=== PATIENT | female | born 2000 | race Caucasian/White ===

== ENCOUNTER 2024-03-06 21:37 | Emergency (ER) | payer OTHER, SELFPAY ==
--- NOTE | 2024-03-06 | ECG_ITS ---
Test Reason : CHEST PAIN Blood Pressure : / mmHG Vent. Rate : 075 BPM Atrial Rate : 075 BPM P-R Int : 134 ms QRS Dur : 076 ms QT Int : 396 ms P-R-T Axes : 049 050 025 degrees QTc Int : 442 ms Normal sinus rhythm with sinus arrhythmia Normal ECG No previous ECGs available Referred By: Generic ED Physician Electronically Signed By:RAUL PRECIADO MD
--- NOTE | ~2024-03-06 | XR_ITS ---
EXAMINATION: XR CHEST CLINICAL INFORMATION: dyspnea COMPARISON: None available. TECHNIQUE: Frontal view of the chest was obtained. FINDINGS: No significant abnormality is noted involving the heart, lungs, mediastinum, bony thorax or soft tissues. XR/XR chest 1V IMPRESSION: Unremarkable examination. Electronically signed by: Guevara Katz MD 03/07/2024 12:02 AM [facility]
[2024-03-06 21:41] VITALS: BP 127/80; PULSE 77; O2SAT 100
[2024-03-06 21:43] VITALS: BP 132/76; PULSE 104; PULSE 85; RESP 18; TEMP 36.5; O2SAT 99; BMI 29.3
--- NOTE | 2024-03-06 21:58 | ED.GENADULT ---
HPI - General Adult General Chief complaint: Upper Respiratory Symptoms Stated complaint: SOB, COUGH X 2WEEKS Time Seen by Provider: 03/06/24 21:58 History of Present Illness ED Provider: Tami COLEMAN narrative: The patient is a 23-year-old female with no significant past medical history. She is on no medications. She is not on control medication. She says that she has been feeling unwell for about 10 days. She has had body aches, sore throat, and cough. She has also been feeling intermittently wheezy and intermittently short of breath. She says it some point she tried using somebody's albuterol but did not feel that it helped. Today she was at work and had a coughing fit and she felt like she could not catch her breath. An ambulance was called and she was brought to the hospital. She does not know if she has had a fever. She has felt hot and chilled but has not checked her temperature. The patient smokes E cigarettes. She says she used to smoke regular cigarettes but does not do that anymore. Related Data Previous Rx's ?Medication ?Instructions ?Recorded albuterol sulfate 90 mcg/actuation 2 puff inhalation Q4-6H PRN 03/07/24 aerosol inhaler shortness of breath or wheezing #8.5 grams azithromycin 250 mg tablet 250 mg PO DAILY 4 days #4 tabs 03/07/24 Allergies Allergy/AdvReac Type Severity Reaction Status Date / Time No Known Allergies Allergy Verified 03/06/24 21:48 Review of Systems Review of Systems: Yes all other systems are reviewed and are negative PMFSH Social History Social History Smoked in Last 30 Days: No Use of substances other than those prescribed or required for medical reasons: Yes Substance Use Type: Marijuana Advance Directives: No Advance Directives Information Provided: No Physical Exam ED Vital Signs: Vital Signs - 24 hr 03/06/24 21:43 03/06/24 21:43 03/06/24 22:03 Temperature 97.7 F 97.7 F Pulse Rate 85 104 H Respiratory Rate 18 18 Blood Pressure 132/76 132/76 Pulse Oximetry 99 99 95 Oxygen Delivery Method Room Air Room Air Room Air 03/07/24 00:03 03/07/24 00:25 03/07/24 00:43 Temperature 98.1 F 98.1 F Pulse Rate 88 80 80 Respiratory Rate 18 16 16 Blood Pressure 122/61 122/61 Pulse Oximetry 96 96 Oxygen Delivery Method Room Air Room Air BMI result Body Mass Index 29.3 Const Other: The patient is awake and alert. She looks as if she is an ordinarily healthy 23-year-old. She has fairly frequent cough but does not appear in respiratory distress or seem toxic. HENMT Other: Face is symmetrical. Mucous membranes are moist. The posterior pharynx does not appear obviously erythematous. No exudate. Eyes General: appearance normal, both eyes and all related structures Conjunctivae: conjunctivae normal Pupils: Equal, round and reactive pupils present EOM: EOMs intact bilaterally Neck Other: Neck is supple, no adenopathy Resp Effort & Inspection: normal respiratory effort Auscultation: clear to auscultation bilaterally Cardio Rate: regular rate Rhythm: regular rhythm Heart sounds: S1 normal heart sound present and S2 normal heart sound present Skin Other: Skin is pale and dry Neuro Other: The patient is awake and alert with a normal mental status. Cranial nerves are grossly intact. She moves her extremities normally and appropriately. She seems neurologically intact. Cranial nerves: Yes Equal, round and reactive pupils present Extrem Other: No calf swelling or tenderness, no peripheral edema, no asymmetry Medications Administered Discontinued Medications Generic Name Dose Route Start Last Admin Trade Name Freq PRN Reason Stop Dose Admin Albuterol Sulfate 2 puff 03/07/24 00:27 03/07/24 00:29 Albuterol Sulfate 90 Mcg 8 Gm Inhaler INHALE 03/07/24 00:28 2 puff ONCE ONE Administration Albuterol/Ipratropium 3 ml 03/06/24 23:52 03/07/24 00:02 Albuterol/Iprat 2.5/0.5mg 3 Ml Ampul.Neb INHALE 03/06/24 23:53 3 ml ONCE ONE Administration Azithromycin 500 mg 03/07/24 00:25 03/07/24 00:36 Azithromycin 500 Mg Tablet PO 03/07/24 00:26 500 mg ONCE ONE Administration Medical Decision Making Medical Decision Making [facility] Narrative: The patient is a 23-year-old female who says that she does not have a history of asthma. She has had respiratory symptoms for about 2 weeks with a lot of coughing, body aches, and a sense of being chilled. Today she had a coughing fit that made it feel like she could not breathe and so an ambulance was called and she was brought to the hospital. On exam she does not have any yakov wheezing but she does have a frequent cough. She felt considerably better after a DuoNeb updraft. It is not a possible she might have cough asthma. She will be treated with a course of azithromycin. She was instructed in the use of an albuterol inhaler with a spacer and will be discharged with an albuterol inhaler and spacer. She should follow up with the regular doctor. She should return if worse. Lab Data Labs: Lab Results 03/06/24 Range/Units 22:06 Influenza Type A (PCR) NEGATIVE (Negative) Influenza Type B (PCR) NEGATIVE (Negative) RSV RNA Qual (PCR) NEGATIVE (Negative) SARS-CoV-2 RNA (RT-PCR) NEGATIVE (Negative) S. pyogenes GrpA KWAKU Negative (Negative) Discharge Plan Discharge Clinical Impression: Acute bronchitis Patient Disposition: Home, Self-Care Instructions: How to Use a Metered-Dose Inhaler and a Spacer (ED) Additional Instructions: You seemed to get some relief from albuterol. You may use the prescribed albuterol inhaler 2 puffs every 4-6 hours as needed for coughing or any shortness of breath. Please also take the prescribed antibiotic, azithromycin. Take this once a day. Drink a lot of fluids. You may use ibuprofen and acetaminophen as needed for discomfort. Please plan on following up with your regular doctor's office. Return to the emergency room if you feel significantly worse. Prescriptions: New azithromycin 250 mg tablet 250 mg PO DAILY 4 Days Qty: 4 0RF Rx Instructions: start on day 2 of therapy albuterol sulfate 90 mcg/actuation HFA aerosol inhaler 2 puff inhalation Q4-6H PRN (Reason: shortness of breath or wheezing) Qty: 8.5 0RF Referrals: [facility] [Provider Group] (bronchitis. ?asthma?) Stand Alone Forms: Work/School Release Interventions: ED Discharge Assessment Last Done: 03/07/24 00:43 Discharge Date/Time: 03/07/24 00:44 Print Language: Swedish
[2024-03-06 22:03] VITALS: O2SAT 95
[2024-03-06 22:21] LABS: IDNOW Serial# 08D9AD1C; Strep A Nucleic Acid Negative (Negative)
[2024-03-06 22:57] LABS: Influenza A PCR NEGATIVE (Negative); Influenza B PCR NEGATIVE (Negative); Resp Syncy Virus RNA Qual PCR NEGATIVE (Negative); SARS COV2 PCR INHOUSE NEGATIVE (Negative)
[2024-03-07] MEDS: Albuterol/Iprat 2.5/0.5MG 3 ML AMPUL.NEB INHALE (00:02)
[2024-03-07 00:03] VITALS: PULSE 88; RESP 18; O2SAT 100
[2024-03-07 00:25] VITALS: BP 122/61; PULSE 80; RESP 16; TEMP 36.7; O2SAT 96
[2024-03-07] MEDS: Albuterol Sulfate 90 MCG 8 GM INHALER 2 PUFF INHALE (00:29)
[2024-03-07] MEDS: Azithromycin 500 MG TABLET PO (00:36)
[2024-03-07 00:43] VITALS: BP 122/61; PULSE 80; RESP 16; TEMP 36.7; O2SAT 96
[2024-03-07 09:06] LABS: Adenovirus PCR Not Detected (Not Detect.); Bordetella parapertussis PCR Not Detected (Not Detect.); Bordetella pertussis PCR Not Detected (Not Detect.); Chlamydia pneumoniae PCR Not Detected (Not Detect.); Coronavirus 229E PCR Not Detected (Not Detect.); Coronavirus HKU1 PCR Not Detected (Not Detect.); Coronavirus NL63 PCR Not Detected (Not Detect.); Coronavirus OC43 PCR Not Detected (Not Detect.); Human metapneumovirus PCR Not Detected (Not Detect.); Influenza A PCR Not Detected (Not Detect.); Influenza B PCR Not Detected (Not Detect.); Mycoplasma pneumoniae PCR Not Detected (Not Detect.); Parainfluenza 1 PCR Not Detected (Not Detect.); Parainfluenza 2 PCR Not Detected (Not Detect.); Parainfluenza 3 PCR Not Detected (Not Detect.); Parainfluenza 4 PCR Not Detected (Not Detect.); RSV PCR Not Detected (Not Detect.); Rhino/Enterovirus PCR Not Detected (Not Detect.)
[2024-03-07 09:39] LABS: SARS-CoV-2 PCR Not Detected (Not Detect.)
== END 2024-03-07 00:44 | disposition home or self-care (01) ==
PROVIDERS: Emergency Provider Emergency Medicine
DX: J40 Bronchitis, not specified as acute or chronic (principal); Z03.818 Encounter for observation for suspected exposure to other biological agents ruled out; R05.9 Cough, unspecified
CPT/HCPCS: 0241U; 71045; 87633; 87651; 93005; 94640; 99284; 99285

== ENCOUNTER → 2024-03-06 21:58 | Outpatient (BNV) | payer SELFPAY | PROVIDERS: Emergency Provider Emergency Medicine; Visit Provider Internal Medicine Cardiovascular Disease | DX: R07.9 Chest pain, unspecified (principal) | CPT/HCPCS: 93010 ==

== ENCOUNTER 2024-12-28 08:26 | Outpatient (REF) | payer BC, SELFPAY ==
[2024-12-28 11:54] LABS: Hematocrit 38.3 % (37.0-47.0); Hemoglobin 12.8 g/dl (12.0-16.0); Mean Corpuscular HGB Conc 33.4 g/dl (31.0-35.0); Mean Corpuscular Hemoglobin 31.0 pg (27.0-33.0); Mean Corpuscular Volume 92.7 fL (80.0-98.0); NRBC Abs Auto 0.000 X10*3/uL (0.0-0.012); NRBC Pct Auto 0.0 /100WBC (0.0-0.2); Platelet Count 262 X10*3/uL (160-400); Red Blood Count 4.13 X10*6/uL (4.20-5.50); White Blood Count 6.0 X10*3/uL (4.8-10.8)
[2024-12-28 12:44] LABS: Alanine Aminotransferase 17 U/L (0-31); Albumin Level 4.5 g/dL (3.5-5.0); Alkaline Phosphatase 53 U/L (39-117); Anion Gap 9 (12-20); Aspartate Amino Transferase 22 U/L (5-31); Blood Urea Nitrogen 11 mg/dL (9-16); Calcium 9.0 mg/dL (8.4-10.2); Carbon Dioxide 28 mmol/L (22-29); Chloride 109 mmol/L (96-108); Cholesterol 132 mg/dL (<200); Estimated Glomerular Filt Rate > 60; HDL Cholesterol 49 mg/dL (>40); Potassium 3.4 mmol/L (3.3-5.1); Sodium 143 mmol/L (135-145); Total Protein 7.1 g/dL (6.5-8.0); Triglycerides 45 mg/dL (<150)
[2024-12-28 13:06] LABS: Folate 12.4 ng/mL (> or = 4.0); Vitamin B12 865 pg/mL (200-900)
[2024-12-28 15:45] LABS: Microalbum/Creatinine Ratio Ur 4.0 ug/mg cr (<30)
== END 2024-12-28 08:27 | disposition home or self-care (01) ==
LOC: HO.WFDLDS 08:26
PROVIDERS: PCP Nurse Practitioner Family; Visit Provider Nurse Practitioner Family
DX: Z23 Encounter for immunization (principal); Z76.89 Persons encountering health services in other specified circumstances; Z13.9 Encounter for screening, unspecified; Z13.1 Encounter for screening for diabetes mellitus; Z00.00 Encounter for general adult medical examination without abnormal findings; F41.1 Generalized anxiety disorder; F33.1 Major depressive disorder, recurrent, moderate; J35.1 Hypertrophy of tonsils; L83 Acanthosis nigricans; M54.6 Pain in thoracic spine; G89.29 Other chronic pain; L30.1 Dyshidrosis [pompholyx]
CPT/HCPCS: 36415; 80053; 80061; 82043; 82306; 82570; 82607; 82746; 83036; 84443; 85027; 90471; 90715; 96127; 96160

== ENCOUNTER 2024-12-28 08:26 | Outpatient (AMB) | payer OTHER, SELFPAY ==
--- NOTE | 2024-12-28 08:39 | MHC.PC.OV ---
Vital Signs 12/28/24 08:45 Height 5 ft 5 in Weight 175 lb 8 oz BMI 29.2 BP 116/68 Blood Pressure Location Lt brachial Position Sitting Respiration 16 Pulse 83 Pulse Source Pulse Oximeter Temp 99.0 F Temp Source Oral Pulse Oximetry (%) 98 Oxygen Delivery Method Room Air Intake Visit Reasons: CPE Intake Note: patient here for new patient visit Equity Structurer Required: No Is last menstrual period known: Yes Last menstrual period: 12/22/24 Post menopausal: No Patient : No Allergies No Known Allergies Allergy (Verified 12/28/24 08:49) Medication List - Last Reviewed 12/28/24 by Rosalba Enriquez MA No Known Home Meds Tobacco use date assessed: 12/28/24 Dental Screening Dental Screen Date: 12/28/24 Did you have a dental visit in the last 12 months?: Yes Did you have a dental problem in the last 6 months where you did not have access to dental care?: No Was dental information given to patient?: Patient has dentist HPI HPI Comments History of Present Illness Details 24 y/o F with Obesity, MDD, SARA, acanthosis nigricans, tonsillar hypertrophy, acne, chronic low back pain Social: 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 Has a girlfriend. Feels safe. Fhx: Mom and Dad alive; unknown Dad hx; Mom w/ mental health. 2 brothers, 1 sister alive and well. Surgery: none Health Maintenance: Tdap 12/2024 Pap has never had one, referred today to [facility] wears glasses, new referral placed today. History of Present Illness - The patient is a 24 year old female presenting to [facility] care and for a CPE - Previous PCP: [facility] - records rec'd and reviewed - Chronic back pain, with onset several months ago, radiating upwards, exacerbated by sitting, and occasionally extending downward when lying down. Denies red flag sx. Does endorse some RLS @ HS from time to time. - Absence of lower extremity numbness or tingling, with normal leg strength. -Bubbled skin rash on hands/fingers assoc w/ pruritus, comes and goes, worse in the Summer. uses topical creams. has never seen derm, no steroid use. - History of depression and anxiety, significantly affecting work performance and leading to discussions about potential leave from work. denies si/hi. has never been on meds. + SARA and PHQ + SDOH. Requesting FMLA for mental health. Past Surgical History - No surgical history was reported. Family History - Positive family history for substance abuse. - No mention of specific maternal or paternal health conditions. - Siblings are reportedly alive and well. Social History - Patient is employed and experiencing significant work stress related to her mental health. - Lives alone, with occasional visits from her girlfriend. - No children were mentioned. - No personal history of substance use, although a family history of substance abuse is present. - No details concerning current nutrition or exercise were discussed. Health Maintenance - Tetanus vaccination offered; last received in 2013. - Discussion around scheduling a Pap smear and referral to a women's health provider. - Diabetes screening and cholesterol monitoring were part of previous lab assessments, although the patient expressed interest in updating labs. - Referral for eye examination suggested for new prescription and vision assessment. Review of Systems - General: Denies fever or weight loss. - Skin: Reports finger bubbles, pruritus during summertime attributed to eczema; denies other general skin concerns. - Musculoskeletal: Reports chronic back pain and intermittent restless leg syndrome. - Neurological: Denies numbness or tingling in legs; normal strength reported. - Psychiatric: Reports depression and anxiety affecting work performance. Physical Exam General: Well developed, well nourished, in no acute distress. Appears stated age. Head: Normocephalic, atraumatic. Eyes: Pupils are equal, round and reactive to light and accommodation. Conjunctivae are clear. Vision grossly normal. Ears: TMs clear AU, EACS WNL Nose: Patent, without discharge. Pharynx; tonsillar hypertrophy bilat (chronic) Neck: Supple, no adenopathy or thyromegaly. No pain or tenderness. Acanthosis nigracans. Breast: Edu on SBE. Lungs: Clear to auscultation bilaterally. No rales, rhonchi or wheeze noted. Good air flow in all damico. Heart: Regular rate and rhythm. No murmurs, click, rubs or gallops are noted. Abdomen: Bowel sounds present in all quadrants. The abdomen is soft, nontender, with no masses or organomegaly noted. No hernias are noted. : Deferred. Reviewed recommendations for routine LEAD IOS DEVELOPER. Referral to women's health provider. Pulses: Peripheral pulses are equal and palpable bilaterally. Extremities: No clubbing, cyanosis nor edema is noted. Neurologic: Gait and station normal. Cranial Nerves 2-12 intact. Motor strength grossly symmetrical and intact. No sensory loss. Balance normal. Spinal tenderness over thoracic and lumbar spine. No paraspinal spasm or pain. Neg SLR bilat. Neg hinge sign. Normal strength tone and reflexes. Skin: No rashes, ulcers, or lesions noted. Turgor is good. Skin color is good. Hair and nails are without abnormalities. Psych: Normal eye contact, affect and mood appropriate, and normal interactions. Patient is alert and appropriate to context. R Results Pending Discussion Notes I consulted the patient on her current concerns, including chronic back pain and eczema symptoms. A discussion on physical therapy for pain management took place, with an emphasis on avoiding unnecessary radiation exposure from imaging unless clinically warranted. A referral to the nurse navigation team was discussed to establish counseling and mental health support, highlighting the negative impact of prolonged absenteeism during depressive episodes. I explained potential treatments and management plans for eczema using topical triamcinolone. Follow-up care with specialized providers was advised, including women?s health and ophthalmology. Patient was given time to ask questions. All questions were answered to their satisfaction. Assessment and Plan 1. Chronic Back Pain - Physical therapy recommended. - Ibuprofen prescribed. - Consider referral to [facility] if no improvement 2. Dyshidrotic Eczema - Triamcinolone prescribed. - Advice on moisturizing. 3. Depression and Anxiety - Referral to counseling. - Discussion on FMLA. Advised against cont. leave for this. Rather fu with outpatient team. they can determine need for intermittent leave to attend [facility]. - Crisis info provided. Contracts for safety. 4. Health Maintenance - Tetanus booster given. - Eye and RECORDER HELPER GRAVITY PROSPECTING referrals given. - Lab work recommended. Patient Instructions - Apply triamcinolone cream to affected areas on hands twice a day as needed. - Follow up with physical therapy in [place] for back pain management. - Attend appointments with women?s health and eye doctors based on referrals. - Respond to the nurse navigation team to start mental health services. - Download and utilize the [employer] carlos for secure communication. - RTO 12 weeks to fu on back pain and mood, sooner as needed. Consent The consent process involved explaining to the patient the use of triamcinolone cream for her dyshidrotic eczema and the benefits of physical therapy for chronic back pain. We discussed the rationale for emphasizing physical interventions over imaging to avoid unnecessary radiation. The patient expressed understanding of recommended strategies, and consent to pursue these interventions was obtained verbally. Risks of steroid use, particularly skin thinning, were acknowledged, and the patient agreed to follow usage instructions. Patient was informed and verbally consented to the use of an ambient scribe for clinic note documentation during this visit. An additional 30 minutes was spent addressing the problem(s) noted at todays visit. This includes time spent before the visit reviewing the chart, time spent during the visit, and time spent after the visit on documentation reviewing laboratory results, diagnostic imaging, medications, performing a medically necessary evaluation, counseling on diagnoses, care coordination, ordering appropriate tests, ordering appropriate medications, review of tests performed by other providers, reporting test results with the patient, communication with other healthcare providers. [facility] Medical History (Updated 12/28/24 @ 09:20 by EZEKIEL Hung) Bronchitis Family History (Updated 12/28/24 @ 08:48 by Rosalba Enriquez MA) Maternal Grandmother Alcohol abuse High blood pressure Diabetes Paternal Grandmother Alcohol abuse Paternal Grandfather Alcohol abuse Mother Substance abuse FH: mental illness Father Substance abuse Brother Asthma Social History Housing: Apartment Patient Tobacco Use Status: Never used Tobacco e-Cigarette/Vaping Use: Never Used Second Hand Smoke Exposure: No Substance Use Type: Marijuana Patient : No service: No Current occupational status: employed 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 1. Little interest or pleasure in doing things: nearly every day 2. Feeling down, depressed, or hopeless: nearly every day 3. Trouble falling or staying asleep, or sleeping too much: more than half the days 4. Feeling tired or having little energy: more than half the days 5. Poor appetite or overeating: several days 6. Feeling bad about yourself - or that you are a failure or have let yourself or your family down: more than half the days 7. Trouble concentrating on things, such as reading the newspaper or watching television: several days 8. Moving or speaking so slowly that other people could have noticed. Or the opposite - being so fidgety or restless that you have been moving around a lot more than usual: not at all 9. Thoughts that you would be better off or of hurting yourself in some way: several days Total score: 15 Depression Screening Interpretation: Positive Depression Screening Follow-up: Existing condition and Community Mental Health Worker F/U Depression Screening Done: Yes 60844 - PHQ-9 Billing: Yes Source: Developed by Drs. Hesham Gilbert, Dyan Jones, Marcelino Muse and colleagues, with an educational maye from [employer]. Thrive Questionnaire Date Thrive assessed: 12/28/24 I am a: Patient What is your living situation today?: I have a steady place to live Within the past 12 months, did the food you bought not last and you didn't have the money to get more?: Sometimes True Within the past 12 months, did you worry whether your food would run out before you got money to buy more?: Sometimes True Do you have trouble paying for medicines?: No Do you have trouble getting transportation to medical appointments?: No Do you have trouble paying your heating and electricity bill?: No Do you have trouble taking care of your child, family member or friend?: No Do you have trouble with day-to-day activities such as bathing, preparing meals, shopping, managing finances, etc.?: No Are you currently unemployed and looking for a job?: No Are you interested in more education?: No Please select the resources that you would like help with: Food Currently or been in a relationship where the following occur: No concerns reported THRIVE Score: 2 AUDIT C Alcohol Use Questionnaire (AUDIT-C) 1. How often do you have a drink containing alcohol?: 2-3 times a week 2. How many drinks containing alcohol do you have on a typical day when you are drinking?: 3 or 4 3. How often do you have six or more drinks on one occasion?: Monthly Total Score: 6 Score Reviewed/Action Taken: Yes SARA-7 AMB Questionnaire SARA-7 Date SARA - 7 assessed: 12/28/24 Feeling nervous, anxious, or on edge: 3 = Nearly every day Not being able to stop or control worryin = Nearly every day Worrying too much about different things: 3 = Nearly every day Trouble relaxin = Nearly every day Being so restless that it is hard to sit still: 2 = More than half the days Becoming easily annoyed or irritable: 3 = Nearly every day Feeling afraid as if something awful might happen: 1 = Several days Total SARA-7 score (0-4 normal; 5-9 mild; 10-14 moderate; 15-21 severe): 18 Source: Developed by Drs. Hesham Gilbert, Dyan Jones, Marcelino Muse and colleagues, with an educational maye from [employer]. SARA-7 Assessment Billing SARA-7 Assessment Tool: SARA-7 Assessment 82707 ACT Questionnaire In the past 4 weeks, how much of the time did your asthma keep you from getting as much done at work, school or at home?: None of the time During the past 4 weeks, how often have you had shortness of breath?: Not at all During the past 4 weeks, how often did your asthma symptoms wake you up at night or earlier than usual in the morning?: Not at all During the past 4 weeks, how often have you had to use your rescue inhaler or nebulizer medication?: Not at all How would you rate your asthma control during the past 4 weeks?: Completely controlled ACT Interpretation: Negative Score: 25 Physical exam (Primary Care) Vital Signs: Last Vital Signs Temp 99.0 F 12/28/24 08:45 Pulse 83 12/28/24 08:45 Resp 16 12/28/24 08:45 BP 116/68 12/28/24 08:45 Pulse Ox 98 12/28/24 08:45 Oxygen Delivery Method Room Air 12/28/24 08:45 BMI result Body Mass Index 29.2 Tobacco/Smoking Status: Tobacco use Status Tobacco use date assessed 12/28/24 12/28/24 08:42 Patient Tobacco Use Status Never used Tobacco 12/28/24 08:42 e-Cigarette/Vaping Use Never Used 12/28/24 08:42 PHQ-9: PHQ-9 Score PHQ-9: Total score 15 12/28/24 08:52 Depression Screening Interpretation: Positive Depression Screening Follow-up: Existing condition and Community Mental Health Worker F/U Thrive Assessment: Date of Thrive Assessment Date Thrive assessed 12/28/24 12/28/24 08:42 Currently or been in a relationship where the following occur: No concerns reported Coding Level of Care Code New Pt Level 3 (72211) New Pt Prev Care 18-39yr(30042 Diagnoses Encounter to establish care with new provider Z76.89 SARA (generalized anxiety disorder) F41.1 Moderate episode of recurrent major depressive disorder F33.1 Major depression episode severity: moderate Tonsillar hypertrophy J35.1 Acanthosis nigricans L83 Encounter for screening involving social determinants of health (SDoH) Z13.9 Need for Tdap vaccination Z23 Chronic midline thoracic back pain M54.6; G89.29 Back pain location: thoracic back pain Chronicity: chronic Back pain laterality: midline Eczema, dyshidrotic L30.1 Encounter for general adult medical examination without abnormal findings Z00.00 Laboratory exam ordered as part of routine general medical examination Z00.00 Additional Codes Asthma Control Questionnaire - ACT Interpretation: Negative ([id number]) SARA-7 Assessment Billing - SARA-7 Assessment Tool: SARA-7 Assessment 75970 ([id number]) PHQ-9 - 37591 - PHQ-9 Billing: Yes ([id number]) Assessment & Plan Assessment & Plan (1) Encounter to establish care with new provider: Code(s): Z76.89 - Persons encountering health services in other specified circumstances (2) SARA (generalized anxiety disorder): Code(s): F41.1 - Generalized anxiety disorder Category: Medical (3) MDD (major depressive disorder), recurrent episode: Code(s): F33.9 - Major depressive disorder, recurrent, unspecified Category: Medical Qualifiers: Major depression episode severity: moderate Qualified Code(s): F33.1 - Major depressive disorder, recurrent, moderate (4) Tonsillar hypertrophy: Code(s): J35.1 - Hypertrophy of tonsils Category: Medical (5) Acanthosis nigricans: Code(s): L83 - Acanthosis nigricans Category: Medical (6) Encounter for screening involving social determinants of health (SDoH): Code(s): Z13.9 - Encounter for screening, unspecified Category: Medical (7) Need for Tdap vaccination: Code(s): Z23 - Encounter for immunization Category: Medical (8) Back pain: Code(s): M54.9 - Dorsalgia, unspecified Category: Medical Qualifiers: Back pain location: thoracic back pain Chronicity: chronic Back pain laterality: midline Qualified Code(s): M54.6 - Pain in thoracic spine; G89.29 - Other chronic pain (9) Eczema, dyshidrotic: Code(s): L30.1 - Dyshidrosis [pompholyx] Category: Medical (10) Encounter for general adult medical examination without abnormal findings: Onset Date: ~12/28/24 Code(s): Z00.00 - Encounter for general adult medical examination without abnormal findings Category: Medical (11) Laboratory exam ordered as part of routine general medical examination: Code(s): Z00.00 - Encounter for general adult medical examination without abnormal findings Category: Medical Plan . Orders: Orders Comprehensive Met. Panel Today Z00.00 - Encounter for general adult medical examination without abnormal findings Microalbumin, Random (w Creat) Today Z00.00 - Encounter for general adult medical examination without abnormal findings PT Evaluation and Treatment Today M54.9 - Dorsalgia, unspecified Complete Blood Count no Diff Today Z00.00 - Encounter for general adult medical examination without abnormal findings Hemoglobin A1c Today Z00.00 - Encounter for general adult medical examination without abnormal findings Lipid Panel Today Z00.00 - Encounter for general adult medical examination without abnormal findings TSH reflex Free T4 Today Z00.00 - Encounter for general adult medical examination without abnormal findings Vitamin B12 and Folate Today Z00.00 - Encounter for general adult medical examination without abnormal findings Vitamin D 25-OH Total Today Z00.00 - Encounter for general adult medical examination without abnormal findings Referrals Optometry Referral H53.8 - Other visual disturbances RECORDER HELPER GRAVITY PROSPECTING Referral Z12.4 - Encounter for screening for malignant neoplasm of cervix Nurse Navigator Referral F33.9 - Major depressive disorder, recurrent, unspecified, F41.1 - Generalized anxiety disorder, Z13.9 - Encounter for screening, unspecified Medications: New ibuprofen 600 mg PO Q8H PRN 21 tabs 2RF pain 7 days triamcinolone acetonide 0.1% 1 appl topical BID 15 grams 2RF Patient Instructions: Walk-In Care (Urgent Care): We Make it Easy Walk-in for urgent medical issues such as: ? Seasonal Allergies ? Insect Bites ? Cough ? Diarrhea ? Acute Asthma Attacks ? Back, Knee or Joint Pain ? Ear Infection ? Fever without a Rash ? Headaches ? Nausea ? [place] [facility], Rash or Skin Irritation ? Sore Throat ? Sports Physicals ? Vomiting Most insurances are accepted. Patients do not need to be part of the [facility] to seek care at the walk-in clinic. Locations [address] [facility] , [place] [address] ? [phone] [facility] Care in [place] provides services to ages 18 and over. Open Friday-Friday: 7 a.m. to 5 p.m. and Friday: 9 a.m. to 3 p.m.* *Hours may vary due to staffing availability. To confirm Walk-In Care hours in [place], please call [phone]. [address] [place] [id number] ? [phone] [facility] in [place] provides services to ages 12 and over. Open Friday-Friday: 8 a.m. to 5 p.m. Hours may vary due to staffing availability. To confirm Walk-In Care hours in [place], please call [phone]. LABORATORY SERVICES: [facility] ? Primary Location [address] [place] [address] Friday through Friday 6:00 AM ? 5:00 PM Friday 7:00 AM ? 11:00 AM* [phone] The [facility] is centrally located near the front entrance of the Medical Center for easy outpatient access. Convenient parking is provided for outpatients. *Hours may vary due to staffing availability. To confirm Laboratory hours for any location, please call [phone]. Offsite Location For your convenience, we offer offsite laboratory draw stations at the following locations: [address] [place] [address] ? [facility] [address], [address] [place] [address] Friday through Friday 7:30 AM ? 1:00 PM* [phone] *Hours may vary due to staffing availability. To confirm Laboratory hours for any location, please call [phone]. [place] ? [address] Friday through Friday 6:00 AM ? 3:30 PM* Friday 6:30 AM ? 3 PM* [phone] *Hours may vary due to staffing availability. To confirm Laboratory hours for any location, please call [phone]. [address] [facility] Friday through Friday 7:30 AM ? 4:00 PM* [phone] *Hours may vary due to staffing availability. To confirm Laboratory hours for any location, please call [phone]. [address] [facility] Friday through 9:00 AM ? 4:00 PM* *Hours may vary due to staffing availability. To confirm Laboratory hours for any location, please call [phone]. Appointments are not necessary. Walk-ins are welcome. Like all the departments throughout the [facility], our Lab undergoes frequent reviews to ensure the quality and accuracy of test results, and our staff takes special pride in its status as a nationally accredited facility. Patient Portal: [facility] ONE PATIENT. ONE RECORD. BETTER CARE. [facility] has a fully integrated, cutting-edge mobile electronic health information system that has revolutionized the way we care for our patients and manage our organization. This system improves communication and coordination enabling us to provide safe, higher-quality care, and an overall positive experience for staff and patients. Our first priority, as always, is to deliver the highest quality care possible. The system is running in the background supporting that priority. This portal is for all [facility] services and practices. If you are experiencing any technical difficulties with enrolling or logging into the Patient Portal please complete the [facility] Patient Portal Technical Support Form. [facility] now offers a new secure on-line interactive tool for patients to review their health information ? ?Patient Portal. This interactive web portal will enable patients and their families to take an active role in their care by providing easy, secure access to their health information via the internet. The Patient Portal provides patients with instant access to their health information, including laboratory results, medications, allergies, demographic information, visit history, and more. In addition to managing their own care, parents and health care proxies with authorized consent will appreciate the ability to access the records of those individuals for whom they provide care. Please note: if you wish to gain access (Proxy) to another patient?s portal, you will be required to come to the Medical Records Department in person at [facility]. Both the patient giving proxy access and the proxy will need to provide photo identification and complete the appropriate authorization. The Patient Portal also allows track their appointments online. The [facility] Patient Portal also saves patients time by allowing them to submit updates to their demographic and contact information prior to their visits. Portal email notifications will also alert patients to any new activity on their portal, such as test results and new appointments. In order to initially enroll in the [facility] Patient Portal, you will need to enter some required information including the following: your [facility] Medical Record number your personal home email address name date of Please note: In order to enroll in the [facility] Patient Portal, we need to have your email address on file in your electronic medical record. ?The email address needs to be specific for one person (yourself) in order for your Portal enrollment to be successful. ?You can update your email address in person with our Registration staff when you are registering for a hospital visit. ?Otherwise, you will need to come to the Health Information Management (Medical Records) Department at [facility]. ?We are open from Friday ? Friday from 7:30 a.m. ? 4:30 p.m. ?You will be required to present a photo id. Once you have successfully enrolled in the Patient Portal, you will receive a one-time user id and password for the Portal, sent to your email address. ?This will allow you to log into the Patient Portal within 99 hrs and reset your own logon id and password, and define personal security questions. ?Once your permanent login and password have been set, you can log into the [facility] Patient Portal at any time via the blue button above or from the Portal Logon button on any page of the [facility] website. [facility] and [facility] encourage all of our patients to enroll in Patient Portal as it presents a valuable opportunity for patients and their families to actively participate in their care and stay healthy Welcome to [facility]. ?We look forward to working with you. National Suicide and Crisis Lifeline: Available 24 hours a day, 7 days a week, 365 days a year Dial 988 with any telephone to speak to someone immediately [address] [place] [address] , Walk ins [facility] (Mental / Behavioral health therapist: [address] [place] [address] [facility] at [facility]: [address] [place] [address] Open from 10am - 12pm (walk ins [place]) [facility] Crisis Services: [address] [place] [address] Walk in hours from 10am - 12pm Behavioral health Network: [address] [place] [address] [place] [address] [phone] Friday through Friday 8am - 8pm Friday and Friday 9am - 5pm Crisis Hotlines Suicide prevention, domestic violence, and other crisis hotlines for youth, young adults, and their friends and families. [facility] Safeline: The [facility] Safeline helps youth who have run away, are thinking about running away, or who already ran away but are ready to come home. Parents and guardians can also contact the hotline if they are worried about their child running away or if their child has already left home. The hotline is available 24 hours a day, seven days a week. Youth, parents, and guardians can also use the online chat feature on the [facility] Safeline's website to ask for help and get support, or [place] [address]. [facility] National Suicide Prevention Lifeline: The National Suicide Prevention Lifeline is a network of local crisis centers that are available 04/11 to provide support for youth and adults who are in any kind of emotional crisis. In addition to the main hotline number listed above, there are several other numbers to call depending on your needs: Gibraltarian Language: Deaf and Hard of Hearin1-624.801.2939 Veterans: Disaster Distress: Anyone can also use their online chat feature on their website. National Suicide Prevention Lifeline [facility] Helpline: The [facility] Helpline is available to anyone in [place] who is need of emotional support. Anyone can call or text the helpline to receive help from specially trained volunteers. [place] high school and college students can also get online support through the IMHear_ program. For high school students, volunteers ages 15-18 are available Friday- from 6-9PM. For college students, IMHear_ is available Friday-Friday from 5-9PM. The Alejandro Project - The Alejandro Project is a 04/11 crisis intervention and suicide prevention hotline for LGBTQ youth. Youth can also text Alejandro to for support, or use the online chat feature on the Ale[employer]andro Project's website. [employer] is available Friday-Friday between 3-10PM. [employer] is available seven days a week between 3-10PM. SafeLink: SafeLink is for anyone who is being affected by domestic violence or dating violence. Volunteers at [employer] speak Kyrgyz and Gibraltarian, and [employer] also has a service that can provide translation in more than 130 languages. TTY: Health screenings for women You should visit your health care provider from time to time, even if you are healthy. The purpose of these visits is to: Screen for medical issues Assess your risk for future medical problems Encourage a healthy lifestyle Update vaccinations and other preventive care services Help you get to know your provider in case of an illness Information Even if you feel fine, you should still see your provider for regular checkups. These visits can help you avoid problems in the future. For example, the only way to find out if you have high blood pressure is to have it checked regularly. High blood sugar and high cholesterol levels also may not have any symptoms in the early stages. A simple blood test can check for these conditions. There are specific times when you should see your provider or receive specific health screenings. The US Preventive Services Task Force publishes a list of recommended screenings. Below are screening guidelines for women ages 18 to 39. BLOOD PRESSURE SCREENING Your blood pressure should be checked at least once every 3 to 5 years if: Your blood pressure is in the normal range (top number less than 120 mm Hg and bottom number less than 80 mm Hg) You don't have risk factors for high blood pressure Ask your provider if you need your blood pressure checked more often if: The top number is 120 to 129 mm Hg or the bottom number is 70 to 79 mm Hg You have diabetes, heart disease, kidney problems, are overweight, or have certain other health conditions You have a first-degree relative with high blood pressure You are Black You had high blood pressure during a If the top number is 130 mm Hg or greater or the bottom number is 80 mm Hg or greater, this is considered stage 1 hypertension. Schedule an appointment with your provider to learn how you can reduce your blood pressure. Watch for blood pressure screenings in your area. Ask your provider if you can stop in to have your blood pressure checked. BREAST CANCER SCREENING Experts do not agree about the benefits of breast self-exams in finding breast cancer or saving lives. Talk to your provider about what is best for you. A screening mammogram is not recommended for most women under age 40. Your provider may discuss and recommend mammograms, MRI scans, or ultrasounds if you have an increased risk for breast cancer, such as: A mother or sister who had breast cancer at a young age (most often starting screening earlier than the age the close relative was diagnosed) You carry a high-risk genetic marker CERVICAL CANCER SCREENING Cervical cancer screening should start at age 21 years unless your provider advises otherwise. After the first test: Women ages 21 through 29 should have a Pap test every 3 years. Exoprts do not agree on whether HPV testing is recommended for this age group. Women ages 30 through 65 should be screened with either a Pap test every 3 years or the HPV test every 5 years or both tests every 5 years (called cotesting ). Women who have been treated for precancer (cervical dysplasia) should continue to have Pap tests for 20 years after treatment or until age 65, whichever is longer. If you have had your uterus and cervix removed (total hysterectomy), and you have not been diagnosed with cervical cancer or precancer (high grade cervical neoplasia), you do not need cervical cancer screening. CHOLESTEROL SCREENING Cholesterol screening should begin at: Age 45 for women with no known risk factors for coronary heart disease Age 20 for women with known risk factors for coronary heart disease Repeat cholesterol screening should take place: Every 5 years for women with normal cholesterol levels More often if changes occur in lifestyle (including weight gain and diet) More often if you have diabetes, heart disease, kidney problems, or certain other conditions DIABETES SCREENING You should be screened for diabetes starting at age 35 and then repeated every 3 years if you have no risk factors for diabetes. Screening may need to start earlier and be repeated more often if you have other risk factors for diabetes, such as: You have a first degree relative with diabetes. You are overweight or have obesity. You have high blood pressure, prediabetes, or a history of heart disease. Screening for diabetes should be done if you are planning to become and you are overweight and have other risk factors such as high blood pressure. DENTAL EXAM Go to the dentist once or twice every year for an exam and cleaning. Your dentist will evaluate if you need more frequent visits. EYE EXAM Have an eye exam every 5 to 10 years before age 40. If you have vision problems, have an eye exam every 2 years or more often if recommended by your provider. You should have an eye exam that includes an examination of your retina (back of your eye) at least every year if you have diabetes. IMMUNIZATIONS Commonly needed vaccines include: Flu shot: get one every year. COVID-19 vaccine: ask your provider what is best for you. Tetanus-diphtheria and acellular pertussis (Tdap) vaccine: have one at or after age 19 as one of your tetanus-diphtheria vaccines if you did not receive it as an adolescent. Tetanus-diphtheria: have a booster (or Tdap) every 10 years. Varicella vaccine: receive 2 doses if you never had chickenpox or the varicella vaccine. Hepatitis B vaccine: receive 2, 3, or 4 doses, depending on your exact circumstances. Measles, mumps, and rubella (MMR) vaccine: receive 1 to 2 doses if you are not already immune to MMR. Your provider can tell you if you are immune. Ask your provider about the human papillomavirus (HPV) vaccine if: You have not received the HPV vaccine in the past You have not completed the full vaccine series (you should catch up on this shot) Ask your provider if you should receive other immunizations if you have certain health problems that increase your risk for some diseases such as pneumonia. INFECTIOUS DISEASE SCREENING Women who are sexually active should be screened for chlamydia and gonorrhea up until age 25. Women 25 years and older should be screened for chlamydia and gonorrhea if at high risk. Screening for hepatitis C: All adults ages 18 to 79 should get a one-time test for hepatitis C. people should be screened at every . Screening for human immunodeficiency virus (HIV): All people ages 15 to 65 should get a one-time test for HIV. Depending on your lifestyle and medical history, you may also need to be screened for infections such as syphilis and HIV, as well as other infections. PHYSICAL EXAM All adults should visit their provider from time to time, even if they are healthy. The purpose of these visits is to: Screen for disease Assess your risk of future medical problems Encourage a healthy lifestyle Update your vaccinations and other preventive care services Maintain a relationship with a provider in case of an illness Your height, weight, and BMI should be checked at every exam. During your exam, your provider may ask you about: Depression and anxiety Diet and exercise Alcohol and tobacco use Safety issues, such as using seat belts, smoke detectors, and intimate partner violence Your medicines and risk for interactions SKIN SELF-EXAM Your provider may check your skin for signs of skin cancer, especially if you're at high risk, such as if you: Have had skin cancer before Have close relatives with skin cancer Have a weakened immune system OTHER SCREENING Talk with your provider about colon cancer screening if you have a strong family history of colon cancer or polyps, or if you have had inflammatory bowel disease or polyps yourself. Routine bone density screening of women under 40 is not recommended.
[2024-12-28 08:45] VITALS: BP 116/68; PULSE 83; RESP 16; TEMP 37.2; O2SAT 98; BMI 29.2
--- OUTSIDE RECORDS SUMMARY | 2024-12-28 09:57 | XMS_ITS | Clinical Summary ---
Author Organization [facility] Address [address] [place] [address] Care Team Providers Care Undercoater Name Role Phone Irma Douglas PA-C Primary Care Provider Source Comments PLEASE NOTE, if this patient is a minor, it may be UNLAWFUL to discuss sensitive information that is contained in these records (such as FAMILY PLANNING, MENTAL HEALTH or SUBSTANCE ABUSE) with the minor patient's parent or other person without the patient's specific authorization.[facility] Allergies No known active allergies Medications No known medications Active Problems Problem Noted Date Diagnosed Date Immune to hepatitis A 11/11/2019 Nonimmune to hepatitis B virus 11/10/2019 Resolved Problems Problem Noted Date Diagnosed Date Resolved Date Depression 11/10/2019 03/25/2022 Acne vulgaris 01/17/2019 03/25/2022 Anxiety 10/25/2018 03/25/2022 Other insomnia 10/25/2018 03/25/2022 Abnormal vision screen 10/25/201803/25 BMI (body mass index), pedia tric, greater than 99% for age 0710/25/2018 03/25/2022 Immunizations Immunization Administration Dates Next Due DTAP (DAPTACEL),5 PERTUSSIS ANTIGENS 05/2006,05/18/2004,2001,10/30,2001,2001 Flu, Cell Culture based, Pre servative Free, 6m+, Flucelvax 04/13/2020 Flu, Preservative Free 03/26/2023,01/07/2019 HEP B, PED/ADOL ([id number]-N-BNDE/RECOMBIVAX-PEDS) 11/22/2019,12/07/2015,2001,08/25,2001 HPV 9 (Gardasil) 12/07/2015,01/14/2014 Hep A, Ped/adol, 2 Dose 12/07/2015,04/24,08/16/2008,06/08 Hib (PRP-T) 05/18/2004,2001,2001 INFLUENZA, SEASONAL, INJECTABLE 05/24/2016,01/14 INFLUENZA, SEASONAL, INJECTA BLE, PRESERVATIVE FREE 01/28/2007 IPV (IPOL) 07/14/2006, 2,2001,08/25 Influenza Virus Vaccine (FLU MIST), Live Intranasal 01/28/2012,01/28/2007 MENINGOCOCCAL B (Bexsero), OMV 03/25/2022,2018 MENINGOCOCCAL MCV4P (MENACTRA) 01/07/2019,2015 MMR (MMR II/Priorix) 07/14/2006,06/29/2002,06/15 MMRV, Live (Proquad) 07/14/2006 PNEUMOCOCCAL CONJUGATE PCV 7 08/26/2003, 2001,2001,08/25 TDAP 01/14/2014 Varicella (Varivax), Live Vaccine 07/16/2006, Family History Medical History Relation Name Comments No Known Problems Father Hypertension Maternal Grandmother Anxiety disorder Mother Bipolar disorder Mother Depression Mother Relation Name Status Comments Father Maternal Grandmother Mother Alive Social History Tobacco Use Types Packs/Day Years Used Date Smoking Tobacco: Never Passive Smoke Exposure: Yes Smokeless Tobacco: Never Tobacco Cessation:Counseling Given: Yes Alcohol Use Standard Drinks/Week Comments Never 0 (1 standard drink = 0.6 oz pur e alcohol) Social Connections Answer Date Recorded Connectedness 0 03/26/2023 Financial Resource Strain Answer Date R ecorded Financial Resource Strain 0 2022 Stress Answer Date Recorded Stress 0 03/26/2023 Physical Activity Answer Date Recorded Physical Activity 0 12/01/2018 Food Insecurity Answer Date Recorded Food 0 03/26/2023 Transportation Needs Answer Date Record ed Transportation 0 03/26/2023 Housing Stability Answer Date Recorded Housing 0 03/26/2023 Safety and Environment Answer Date Collins rded Safety 0 03/26/2023 Utilities Answer Date Recorded Utilities 0 03/26/2023 Employment Answer Date Recorded Employment 0 12/01/2018 Comments No Sex and Gender Information Value Date Recorded Sex Assigned at Female 11/10/2019 1:52 PM PDT Legal Sex Female 6:15 AM PDT Gender Identity Female 11/10/2019 1:52 PM PDT Sexual Orientation Straight 11/10/2019 1: 52 PM PDT Last Filed Vital Signs Vital Sign Reading Time Taken Comments Blood Pressure 122/60 03/26/2023 4:20 PM EST Pulse 68 03/26/2023 4:20 PM EST Temperature 36.7 C (98.1 F) 03/26/2023 4:20 PM EST Respiratory Rate 16 03/26/2023 4:20 PM EST Oxygen Saturation 100% 03/26/2023 4:20 PM EST Inhaled Oxygen Concentration - - Weight 85.3 kg (188 lb) 03/26/2023 4:20 PM EST Height 165.1 cm (5' 5 ) 03/25/2022 8:38 AM EST Body Mass Index 31.28 03/25/2022 8:38 AM EST Plan of Treatment Health Maintenance Due Date Last Done Comments Anxiety Screening 2001 HPV Screening 2001 Pap + HPV 2001 Tobacco Screening 2001 Chlamydia Screening 11/09/2020 11/10/2019, 9 Gonorrhea Screening 11/09/2020 11/10/2019, 9 Cervical Cancer Screening 2022 Pap Smear 2022 Imm-DTaP/Tdap/Td (7 - Td or Tdap) 01/15/2024 01/14/2014, 07/14/2006, 05/18/2004, Additional history exists Annual Wellness (Adult): Indicated (All Coverage) 03/26/2024 03/26/2023, 03/25/2022, 11/10/2019 Relationship Safety Screening/Counseling 03/26/2024 03/26/2023, 03/25/2022 Alcohol and Drug Screen 04/14/2024 03/26/20 23, 03/25/2022, 11/10/2019, Additional history exists Depression Annual Screen 04/14/2024 03/26/2023 [id number] ( season) 2024 022, 04/12/2021 Imm-Influenza (#1) 2024 03/26/2023, 1 , 01/07/2019, Additional history exists Hypertension Screening (#1) 03/25/2026 Imm-Varicella Completed 07/16/2006, 05/2006, 06/11/2004 Imm-HPV Completed 12/07/2015, 01/14/2014 HIV Screening Completed 10/07/2018 Hepatitis C Screening Completed 11/10/2019 Imm-Hepatitis B Completed 11/22/2019, 11/13, 2001, Additional history exists Imm-Meningococcal B Completed 03/25/2022, 9 Cervical Ablation/Cold-Knife Conization Discontinued Cervical Cryotherapy Discontinued Colposcopy Discontinued Endometrial Biopsy Discontinued Excision/Leep Discontinued HPV Genotyping Discontinued Vaginal Pap Discontinued Vulvoscopy Discontinued Procedures Procedure Name Priority Date/Time Associated Diagnosis Comments HEPATITIS A,B,C PANEL Routine 11/10/2019 11:53 AM EDT Routine general medical examination at a health care facility GC DNA PROBE, URINE Routine 11/10/2019 1 2:00 AM EDT CHLAMYDIA DNA PROBE, URINE Routine 11/10/2019 12:00 AM EDT ANTIBODY HIV-1&HIV-2 SINGLE RESULT Routine 10/07/2018 11:16 AM EDT Encounter for well child visit at 18 years of age from Last 3 Months or Most Recently Relevant to Health Maintenance Results * (ABNORMAL) HEPATITIS A,B,C PANEL (11/10/2019 11:53 AM EDT) HEPATITIS B SURFACE ANTIBODY NEGATIVE NEGATIVE [facility] HEPATITIS B SURFACE ANTIGEN NEGATIVE NEGATIVE [facility] Comment: Over the counter supplements containing high doses of biotin may interfere with this assay. If interference is suspected, patients shoud be retested after refraining from biotin supplements for 72 hours. HEPATITIS C VIRUS DIAGNOSTIC NEGATIVE NEGATIVE [facility] HEPATITIS A ANTIBODY TOTAL POSITIVE(A) NEGATIVE [facility] Comment: Over the counter supplements containing high doses of biotin may interfere with this assay. If interference is suspected, patients shoud be retested after refraining from biotin supplements for 72 hours. HEPATITIS B CORE ANTIBODY NEGATIVE NEGATIVE [facility] Blood specimen (specimen) Blood / Unknown 11/10/2019 11:53 AM EDT 11/10/2019 4:31 PM EDT [facility] - 11/10/2019 5:32 PM EDT [email or web address], [place] [address] [employer] - Juli Patel MD PT ID [id number] ORD# [id number] us Antolin Vargas MD LAB - BLOOD DRAW [place] [address], [place] [phone] * GC DNA PROBE, URINE (11/10/2019 12:00 AM EDT) GC DNA URINE NEGATIVE NEGATIVE [facility] 11/10/2019 11/10/2019 4:0 9 PM EDT [facility] - 11/19/2019 4:10 PM EDT [facility] [employer], [place] [address] [employer] 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 us Antolin Vargas MD LAB - MICROBIOLOGY A MBULATORY Final Result [address] [address], [place] [phone] * CHLAMYDIA DNA PROBE, URINE (11/10/2019 12:00 AM EDT) CHLAMYDIA DNA URINE NEGATIVE NEGATIVE [facility] 11/10/2019 11/10/2019 4:0 9 PM EDT [facility] - 11/19/2019 4:10 PM EDT [email or web address], [place] [address] [employer] Civil Engineer - Juli Patel MD PT ID [id number] ORD# [id number]. us Antolin Vargas MD LAB - MICROBIOLOGY A MBULATORY Final Result Performing Organization Address [facility]/[place] [address], [place] [phone] * HIV-1 & HIV-2 ANTIBODIES (10/07/2018 11:16 AM EDT) [facility] HIV 1 AND 2 ANTIBODY SCREEN NEGATIVE NEGATIVE [facility] Comment: This assay is a 4th generation assay allowing for earlier detection of HIV infection by detecting the presence of the HIV-1 p24 antigen as well as the traditional antibodies to HIV type 1 (including group O) and type 2. Use of a 4th generation assay is the current CDC recommendation for HIV screening. Blood specimen (specimen) Blood / Unknown 10/07/2018 11:16 AM EDT 10/07/2018 11:21 AM EDT Narrative [facility] - 10/07/2018 4:44 PM EDT [email or web address] [address] [employer] Civil Engineer - Virginia Jackson MD PT ID [id number] ORD# [id number] us Antolin Vargas MD LAB - BLOOD DRAW Fin al Result Performing Organization Address City/[facility]/ZIP Co de Phone Number [address] [address], [place] [phone] from Last 3 Months or Most Recently Relevant to Health Maintenance Insurance [id number] Care Teams Undercoater Relationship Specialty Start Date End Date Irma Douglas PA-C [address] [place] [id number] PCP - General Internal Medicine 03/12/23
== END 2024-12-28 09:28 | disposition home or self-care (01) ==
PROVIDERS: PCP Nurse Practitioner Family; Visit Provider Nurse Practitioner Family
DX: Z00.00 Encounter for general adult medical examination without abnormal findings (principal); F41.1 Generalized anxiety disorder; F33.1 Major depressive disorder, recurrent, moderate; J35.1 Hypertrophy of tonsils; L83 Acanthosis nigricans; Z23 Encounter for immunization; M54.6 Pain in thoracic spine; G89.29 Other chronic pain; L30.1 Dyshidrosis [pompholyx]